=== PATIENT | female | born 1935 | race Caucasian/White ===

== ENCOUNTER 2019-03-23 12:49 | Emergency (ER) | payer OTHER ==
[~2019-03-23] VITALS: Ht 149.9 cm; Wt 54.4 kg
[~2019-03-23 12:49] MED LIST: ATENOLOL25 MG
== END 2019-03-23 16:25 | disposition home or self-care (01) ==
LOC: ER 12:49
DX: M54.2 Cervicalgia (principal)

== ENCOUNTER 2021-05-07 02:00 | Outpatient (CLI) | payer OTHER | END 2021-05-07 02:30 | disposition home or self-care (01) | LOC: PPH VACUNA 02:00 | PROVIDERS: ATTEND Emergency Medicine Pediatric Emergency Medicine | DX: Z23 Encounter for immunization (principal) ==

== ENCOUNTER 2021-09-13 08:17 | Outpatient (CLI) | payer OTHER | END 2021-09-13 08:27 | disposition home or self-care (01) | LOC: PPH VACUNA 08:17 | PROVIDERS: ATTEND Emergency Medicine Pediatric Emergency Medicine | DX: Z23 Encounter for immunization (principal) ==

== ENCOUNTER 2022-03-08 07:12 | Outpatient (CLI) | payer OTHER | END 2022-03-08 07:18 | disposition home or self-care (01) | LOC: LAB 07:12 | PROVIDERS: ATTEND Internal Medicine | DX: Z12.11 Encounter for screening for malignant neoplasm of colon (principal); E03.9 Hypothyroidism, unspecified; E78.2 Mixed hyperlipidemia; R73.01 Impaired fasting glucose ==

== ENCOUNTER 2022-10-27 06:43 | Outpatient (CLI) | payer OTHER | END 2022-10-27 07:28 | disposition home or self-care (01) | LOC: LAB 06:43 | DX: I10 Essential (primary) hypertension (principal); Z12.11 Encounter for screening for malignant neoplasm of colon; R73.09 Other abnormal glucose; E03.9 Hypothyroidism, unspecified; E55.9 Vitamin D deficiency, unspecified; E78.2 Mixed hyperlipidemia ==

== ENCOUNTER 2022-10-27 07:32 | Outpatient (CLI) | payer OTHER | END 2022-10-27 07:42 | disposition home or self-care (01) | LOC: MAMO-SONO 07:32 | DX: Z12.31 Encounter for screening mammogram for malignant neoplasm of breast (principal); N60.29 Fibroadenosis of unspecified breast ==